=== PATIENT | male | born 1980 | race African-American/Black ===

== ENCOUNTER 2019-05-29 13:10 | Emergency (ER) | payer MEDICAID ==
[~2019-05-29] VITALS: Ht 162.6 cm; Wt 62.6 kg
[2019-05-29 13:40] VITALS: BP 110/52
[2019-05-29] MEDS ORDERED: DiphenhydrAMINE 50mg/ml Inj IVP ONE (14:00)
[2019-05-29] MEDS ORDERED: Morphine Sulfate 4mg/ml Inj (IV USE ONLY) IVP ONE (14:00)
[2019-05-29] MEDS ORDERED: Metoclopramide 10mg/2ml Inj IVP ONE (14:00)
--- NOTE | 2019-05-29 14:00 | NUR ---
ED Nurse Note: Pt walked into ED from home. Pt states he's been having abdominal pain lower 8/10 for 5 days. Pt states he has been vomiting 10x since this morning and is fatugued. Pt states vomit has blood in it. Pt is alert and orientedx4, anxious, ambulatory. Pt vomited 1x in ER. Pt is set up on monitor.
[2019-05-29 14:28] LABS: BASOPHILS % (AUTO) 3.2 % (0.0-2.0); EOSINOPHILS % (AUTO) 0.1 % (0.0-3.0); HEMATOCRIT 47.8 % (42.0-52.0); HEMOGLOBIN 16.3 G/DL (14.2-18.0); LYMPHOCYTES % (AUTO) 17.2 % (20.0-45.0); MEAN CORPUSCULAR VOLUME 85 FL (80-99); MONOCYTES % (AUTO) 11.9 % (1.0-10.0); NEUTROPHILS % (AUTO) 67.6 % (45.0-75.0); PLATELET COUNT 174 K/UL (150-450); RED BLOOD COUNT 5.61 M/UL (4.70-6.10); WHITE BLOOD COUNT 6.2 K/UL (4.8-10.8)
--- NOTE | 2019-05-29 14:41 | Emergency Room Report ---
History of Present Illness General Chief Complaint: Nausea, Vomiting, and Diarrhea Source: Patient Present Illness HPI The patient presents with epigastric pain and vomiting. He states he is unable to keep down liquids. He claims he is vomiting "a lot" of blood. He denies coffee grounds or minimal melena. He is felt weak and dizzy with standing. The patient's had chills but no documented fever. Pain is rated 10/10 epigastric and radiating to his back. Aching and burning pain. The patient has a history of HIV but is noncompliant with medications. Patient admits to methamphetamine recently. No fevers, chills, sore throat, chest pain, palpitations, dysuria, abdominal pain, shortness of breath, joint pain, rashes, visual changes, headache. Allergies: Coded Allergies: No Known Allergies (Unverified , 05/29/19) Patient History Past Medical History: see triage record Social History: Reports: smoking, alcohol use, drug use Social History Narrative Lives with friends Reviewed Nursing Documentation: PMH: Agreed; PSxH: Agreed Nursing Documentation-PMH Hx Cardiac Problems: No - HIV Review of Systems All Other Systems: negative except mentioned in HPI Physical Exam Vital Signs Date Time Temp Pulse Resp B/P (MAP) Pulse Ox O2 Delivery O2 Flow Rate FiO2 05/29/19 13:30 98.2 130 20 111/58 (75) 98 Room Air Sp02 EP Interpretation: reviewed, normal General Appearance: alert, non-toxic, mild distress Head: normocephalic, atraumatic Eyes: bilateral eye PERRL, bilateral eye abnormal EOM - Disconjugate gaze, bilateral eye Scleral Injection ENT: dry mucus membranes Neck: supple Respiratory: lungs clear, normal breath sounds Cardiovascular #1: regular rate, rhythm Cardiovascular #2: 2+ radial (R) Gastrointestinal: no guarding, no rebound, tenderness - Epigastric, decreased bowel sounds Genitourinary: no CVA tenderness Musculoskeletal: back normal, normal range of motion, gait/station normal Neurologic: alert, motor strength/tone normal, oriented x3, sensory intact, grossly normal Psychiatric: anxious Skin: no rash, warm/dry Medical Decision Making Diagnostic Impression: Primary Impression: Epigastric pain Additional Impressions: Elevated lactic acid level Medical non-compliance Hyponatremia Renal insufficiency HIV (human immunodeficiency virus infection) Qualified Codes: B20 - Human immunodeficiency virus [HIV] disease ER Course Patient presents with epigastric pain, nausea. Differential includes gastritis , gastroenteritis, GI bleed, pancreatitis, dehydration amongst others. Patient evaluated with chest x-ray, abdominal film and labs. Patient treated with IV hydration and Reglan, Benadryl, Pepcid and morphine. This patient has comorbidities that makes him at higher risk. The fact he has HIV disease and is noncompliant is disconcerting. Chest x-ray no infiltrates. Abdomen paucity of gas. Normal white count. Hemoglobin normal. Sodium low. Renal insufficiency. Elevated CK. Blood alcohol 3. Called with elevated lactic acid. The rest of the 30 mill per kilogram bolus is being administered. Patient clinically improved however due to this and history patient needs admission. 1505 based on clinical presentation and findings sepsis unlikely. Discussed with Dr. Jacob who accepts at [facility] 1515. Patient improved and stable for transfer. Repeat lactic acid normal. Laboratory Tests Test 05/29/19 13:55 05/29/19 15:45 White Blood Count 6.2 K/UL (4.8-10.8) Red Blood Count 5.61 M/UL (4.70-6.10) Hemoglobin 16.3 G/DL (14.2-18.0) Hematocrit 47.8 % (42.0-52.0) Mean Corpuscular Volume 85 FL (80-99) Mean Corpuscular Hemoglobin 29.0 PG (27.0-31.0) Mean Corpuscular Hemoglobin Concent 34.1 G/DL (32.0-36.0) Red Cell Distribution Width 12.0 % (11.6-14.8) Platelet Count 174 K/UL (150-450) Mean Platelet Volume 6.7 FL (6.5-10.1) Neutrophils (%) (Auto) 67.6 % (45.0-75.0) Lymphocytes (%) (Auto) 17.2 % (20.0-45.0) L Monocytes (%) (Auto) 11.9 % (1.0-10.0) H Eosinophils (%) (Auto) 0.1 % (0.0-3.0) Basophils (%) (Auto) 3.2 % (0.0-2.0) H Prothrombin Time 10.8 SEC (9.30-11.50) Prothrombin Time INR 1.0 (0.9-1.1) Activated Partial Thromboplast Time 31 SEC (23-33) Sodium Level 127 MMOL/L (136-145) L Potassium Level 3.7 MMOL/L (3.5-5.1) Chloride Level 89 MMOL/L (98-107) L Carbon Dioxide Level 24 MMOL/L (21-32) Anion Gap 15 mmol/L (5-15) Blood Urea Nitrogen 33 mg/dL (7-18) H Creatinine 1.4 MG/DL (0.55-1.30) H Estimate Glomerular Filtration Rate > 60 mL/min (>60) Glucose Level 104 MG/DL (74-106) Lactic Acid Level 2.70 mmol/L (0.4-2.0) H 2.10 mmol/L (0.66-2.22) Calcium Level 8.6 MG/DL (8.5-10.1) Magnesium Level 2.1 MG/DL (1.8-2.4) Total Bilirubin 0.8 MG/DL (0.2-1.0) Aspartate Amino Transferase (AST) 66 U/L (15-37) H Alanine Aminotransferase (ALT) 37 U/L (12-78) Alkaline Phosphatase 70 U/L (46-116) Total Creatine Kinase 1638 U/L (26-308) H Troponin I 0.000 ng/mL (0.000-0.056) Total Protein 8.3 G/DL (6.4-8.2) H Albumin 3.0 G/DL (3.4-5.0) L Globulin 5.3 g/dL Albumin/Globulin Ratio 0.6 (1.0-2.7) L Lipase 164 U/L (73-393) Serum Alcohol 3 mg/dL Rhythm Strip Diag. Results EP Interpretation: yes Rhythm: no PVC's, no ectopy, other - Sinus tachycardia Chest X-Ray Diagnostic Results Chest X-Ray Diagnostic Results : Chest X-Ray Ordered: Yes # of Views/Limited/Complete: 1 View Indication: Other EP Interpretation: Yes Interpretation: no consolidation, no effusion, no pneumothorax Impression: No acute disease Electronically Signed by: Electronically signed by Jay Elkins MD Other X-Ray Diagnostic Results Other X-Ray Diagnostic Results : X-Ray ordered: Abdomen # of Views/Limited Vs Complete: 1 View Indication: Pain EP Interpretation: Yes Interpretation: no sbo, other - Paucity of gas no masses Impression: Other Electronically Signed by: Electronically signed by Jay Elkins MD Last Vital Signs Date Time Temp Pulse Resp B/P (MAP) Pulse Ox O2 Delivery O2 Flow Rate FiO2 05/29/19 17:00 98.3 94 18 110/61 98 Room Air Status: improved Disposition: XFER [facility]OS[facility] Condition: Serious Referrals: [facility],REFERRING (PCP) Jay Elkins MD May 29, 2019 14:41
[2019-05-29 14:43] LABS: ANION GAP 15 mmol/L (5-15); BLOOD UREA NITROGEN 33 mg/dL (7-18); CALCIUM 8.6 MG/DL (8.5-10.1); CARBON DIOXIDE 24 MMOL/L (21-32); CHLORIDE 89 MMOL/L (98-107); CREATININE 1.4 MG/DL (0.55-1.30); POTASSIUM 3.7 MMOL/L (3.5-5.1); SODIUM 127 MMOL/L (136-145)
[2019-05-29 14:56] LABS: ALANINE AMINOTRANSFERASE 37 U/L (12-78); ALBUMIN/GLOBULIN RATIO 0.6 (1.0-2.7); ALKALINE PHOSPHATASE 70 U/L (46-116); ASPARTATE AMINO TRANSFERASE 66 U/L (15-37); BILIRUBIN,TOTAL 0.8 MG/DL (0.2-1.0); CREATINE KINASE 1638 U/L (26-308)
[2019-05-29] MEDS ORDERED: Sodium Chloride 1,900 ML IVLG ONE (15:15)
[2019-05-29 16:37] VITALS: BP 116/67
[2019-05-29 17:00] VITALS: BP 110/61
--- NOTE | 2019-05-29 17:00 | NUR ---
ED Nurse Note: Pt unable to provide urine sample. aware and states ok.
--- NOTE | 2019-05-29 17:00 | NUR ---
ER DISCHARGE NOTE: Patient is cleared to be transferred per ERMD, pt is aox4, on room air, with stable vital signs. pt took all belongings. IV in L AC> Pt being transferred with ambulance personnel to [facility].
--- NOTE | 2019-05-29 17:47 | Diagnostic Imaging Report ---
Indication: Abdominal pain Technique: Supine view of the abdomen Comparison: None Findings: There are mildly dilated left mid abdominal small bowel loops noted. There is also suggestion of a considerable dilated partially gas partially fluid-filled epigastric region small bowel loop. No evident masses. Impression: Suggestion of dilated left mid and upper abdominal small bowel loops, could represent ileus versus small bowel obstruction
--- NOTE | 2019-05-29 17:48 | Diagnostic Imaging Report ---
Indication: Shortness of breath Technique: One view of the chest Comparison: none Findings: Lungs and pleural spaces are clear. Heart size is normal. Impression: No acute process
== END 2019-05-29 17:00 | disposition short-term general hospital (02) ==
LOC: EDBEDREQ 13:52 → EMR 14:05
DX: R10.13 Epigastric pain (principal); R79.89 Other specified abnormal findings of blood chemistry; E87.1 Hypo-osmolality and hyponatremia; N28.9 Disorder of kidney and ureter, unspecified; B20 Human immunodeficiency virus [HIV] disease; F15.90 Other stimulant use, unspecified, uncomplicated; F17.200 Nicotine dependence, unspecified, uncomplicated; Z91.14 Patient's other noncompliance with medication regimen; Z72.89 Other problems related to lifestyle
CPT/HCPCS: 36415; 71045; 74018; 80053; 82550; 83605; 83690; 83735; 84484; 85025; 85610; 85730; 96361; 96374; 96375; G0480; J1200; J2270; J2765; J7030; S0028; Z7502; 99284